=== PATIENT | female | born 1980 | race Caucasian/White ===

== ENCOUNTER 2021-10-24 11:27 | Emergency (ER) | payer OTHER ==
[~2021-10-24] VITALS: Ht 162.6 cm; Wt 49.0 kg
[2021-10-24 14:36] VITALS: BP 130/73
== END 2021-10-24 14:37 | disposition home or self-care (01) ==
LOC: M.ERS 11:27
DX: R10.9 Unspecified abdominal pain (principal); Z53.21 Procedure and treatment not carried out due to patient leaving prior to being seen by health care provider